=== PATIENT | male | born 1950 | race African-American/Black ===

== ENCOUNTER 2023-01-13 07:58 | Emergency (ER) | payer OTHER ==
[~2023-01-13] VITALS: Ht 182.9 cm; Wt 100.0 kg
[2023-01-13] MEDS ORDERED: DOPamine 1600mCg/ml 400MG/250ml NSorD5 KIT/BAG IV ONE (07:59)
[2023-01-13] MEDS ORDERED: EPINEPHrine HCL 1 MG/10 ML SYRG IV ONE ×2 (07:59→10:15)
[2023-01-13] MEDS ORDERED: SODIUM BICARBONATE 8.4% INJ 50ML SYRINGE IV ONE (07:59)
[2023-01-13] MEDS ORDERED: EPINEPHrine HCL 250 ML IV ONE ×2 (08:15→10:15)
[2023-01-13] MEDS ORDERED: SODIUM BICARBONATE 8.4% INJ 50ML SYRINGE ONE (08:15)
[2023-01-13] MEDS ORDERED: PROPOFOL 100 ML IV ONE (08:18)
[2023-01-13] MEDS ORDERED: NOREPINEPHRINE 8 MG/250ML KIT 250 ML IV SCH (08:30)
[2023-01-13] MEDS ORDERED: HALOPERIDOL LACTATE 5 MG/ML INJ VIAL IM ONE (08:30)
[2023-01-13] MEDS ORDERED: SODIUM CHLORIDE 0.9% 1,000 ML IV ONE (08:30)
[2023-01-13] MEDS ORDERED: DOPamine 1600MCG/ML D5W 250 ML IV ONE (08:30)
[2023-01-13] MEDS ORDERED: SUCCINYLCHOLINE CHLORIDE 20 MG/ML 10ML VIAL IV ONE (08:30)
[2023-01-13] MEDS ORDERED: NOREPINEPHRINE 8 MG/250ML KIT 250 ML IV ONE (08:33)
[2023-01-13] MEDS ORDERED: HALOPERIDOL LACTATE 5 MG/ML INJ VIAL ONE (08:33)
[2023-01-13] MEDS ORDERED: EPINEPHrine HCL 1 MG/10 ML SYRG ONE (08:39)
[2023-01-13] MEDS ORDERED: PROPOFOL 10 MG/ML 20 ML IV ONE (10:15)
[2023-01-13] MEDS ORDERED: SODIUM BICARBONATE 8.4 % INJ 50ML VIAL IV ONE (10:15)
[2023-01-13 10:34] VITALS: BP 79/54
== END 2023-01-13 09:11 ==
LOC: ER 07:58 → EDBD 07:58 → ER 09:11
DX: I46.9 Cardiac arrest, cause unspecified (principal); I11.0 Hypertensive heart disease with heart failure; I50.9 Heart failure, unspecified; E11.9 Type 2 diabetes mellitus without complications
CPT/HCPCS: 31500; 36415; 36600; 71045; 82805; 84484; 87070; 87205; 92950; 93005; 96374; 96375; 99291; J0171; J1265; J2704